=== PATIENT | female | born 1955 | race Caucasian/White ===

== ENCOUNTER 2022-01-10 23:24 | Emergency (ER) | payer SELFPAY ==
[~2022-01-10] VITALS: Ht 168 cm; Wt 100.0 kg
[2022-01-10 23:26] VITALS: BP 170/96
--- NOTE | 2022-01-10 23:41 | ED EENT ---
History of Present Illness General Chief Complaint: Dental Problems/Pain Stated Complaint: DENTAL PAIN Source: patient Exam Limitations: no limitations History of Present Illness Date Seen by Provider: Jan 10, 2022 Time Seen by Provider: 23:27 Initial Comments 66yoF with PMH of HTN, HLD, chronic pain coming in due to dental pain. Has had poor dentition and issues for years, but yesterday increasing pain so went to her dentist. X-ray showed infection so she was started on azithromycin due to multiple allergies to medications. This has not been helping and the swelling worsened today. Pain is severe, constant, throbbing, worse with touching it, better with ice. She took ibuprofen earlier which helped somewhat. She is otherwise denying any other acute complaints Allergies and Home Medications Allergies Coded Allergies: Penicillins (Verified Allergy, Severe, 01/10/22) cefaclor (Verified Allergy, Unknown, 01/10/22) cephalexin (Verified Allergy, Unknown, rash, 01/10/22) Patient Home Medication List Home Medication List Reviewed: Yes Review of Systems Review of Systems Constitutional: No fever Eyes: Denies Blurred Vision Ears: No Symptoms Reported Nose: no symptoms reported Mouth: pain, swelling Throat: no symptoms reported Respiratory: no symptoms reported Cardiovascular: no symptoms reported Gastrointestinal: no symptoms reported Musculoskeletal: no symptoms reported Skin: no symptoms reported Neurological: No Symptoms Reported Hematologic/Lymphatic: No Symptoms Reported Immunological/Allergic: no symptoms reported All Other Systems Reviewed Negative Unless Noted: Yes Past Vhdhtii-Rpolbi-Zmogte Hx Patient Social History Substance use?: No Physical Exam Height, Weight, BMI Height: '" Weight: lbs. oz. kg; BMI Method: General Appearance: WD/WN, mild distress Eyes: bilateral eye normal inspection Ears: bilateral ear auricle normal Nose: normal inspection Mouth/Throat: pharynx normal, dental tenderness, mandibular swelling (right lower jaw swollen, no palpable abscess); No pharynx swelling, No pharynx tenderness, No tonsillar exudate, No trismus, No uvula swelling Neck: non-tender, full range of motion, supple, normal inspection Cardiovascular: regular rate, rhythm, no edema, no murmur Respiratory: chest non-tender, lungs clear, normal breath sounds, no respir atory distress, no accessory muscle use Gastrointestinal: normal bowel sounds, non tender, soft; No distended, No guarding, No rebound Neurologic/Psychiatric: no motor/sensory deficits, alert, normal mood/affect Skin: normal color, warm/dry Progress/Results/Core Measures Results/Orders My Orders Orders - DAVID GRIGSBY MD Clindamycin Capsule (Cleocin Capsule) (01/10/22 23:45) Hydrocodone/Apap 5/325 Tablet (Lortab 5 (01/10/22 23:45) Diphenhydramine Tablet (Benadryl Tablet) (01/10/22 23:45) Progress Progress Note : Progress Note 66-year-old female with above history coming in due to dental pain with some swelling. ABCs were intact and vitals were stable on presentation. Physical exam with some swelling in her lower jaw, but no palpable abscess on my exam. No trismus or red flags. She is swallowing and tolerating secretions without difficulty. No respiratory compromise. She has multiple allergies, but she says she does have clindamycin at home, it just makes her itch sometimes. We will trial it here with some Benadryl. I do not think the azithromycin that her dentist put her on is covering the infection given it is worsening. I will refer her back to the dentist for the teeth to be removed. She was given hydrocodone here for pain. She was then discharged home in stable condition with strict return precautions Departure Impression Primary Impression: Dental infection Disposition: HOME, SELF-CARE Condition: Stable Departure-Patient Inst. Decision time for Depature: 23:55 Referrals: LAKISHA BAR APRN (PCP/Family) Primary Care Physician Patient Instructions: Dental Pain ED Add. Discharge Instructions: Please call your primary doctor and your dentist tomorrow. These teeth need to be removed and the infection needs to be drained which only your dentist can do. There are a few hydrocodone that we sent home with you for emergencies, otherwise take ibuprofen and or tylenol Scripts Clindamycin HCl (Clindamycin HCl) 300 Mg Capsule 300 MG PO QID for 7 Days, #28 CAP Prov: DAVID GRIGSBY MD 01/10/22 Work/School Note: Work Release Form Date Seen in the Emergency Department: Jan 10, 2022 Return to Work: Jan 13, 2022 Restrictions: No Restrictions DAVID GRIGSBY MD Jan 10, 2022 23:41
[2022-01-10] MEDS ORDERED: CLINDAMYCIN 150 MG (CLEOCIN) CAP PO ONE (23:45)
[2022-01-10] MEDS ORDERED: HYDROcodone/APAP 5 MG/325 MG (LORTAB) TAB PO ONE (23:45)
[2022-01-10] MEDS ORDERED: diphenhydrAMINE 25 MG TAB (BENADRYL) PO ONE (23:45)
[2022-01-10] MEDS ORDERED: CLIN-144 PO (23:46)
== END 2022-01-10 23:57 | disposition home or self-care (01) ==
LOC: EDUNIT# 23:24 → ER FS 23:27
DX: K04.7 Periapical abscess without sinus (principal)
CPT/HCPCS: 99283

== ENCOUNTER 2023-01-15 23:40 | Emergency (ER) | payer MEDICARE ==
[~2023-01-15 23:40] MED LIST: CLIN-144 PO
[2023-01-15 23:55] VITALS: BP 176/83
[2023-01-15] MEDS ORDERED: NS IV 1000 ML 1,000 ML IV STA (23:57)
[2023-01-15] MEDS ORDERED: LORazepam INJ 2 MG/ML (ATIVAN) VIAL IVP STA (23:57)
--- NOTE | 2023-01-16 00:03 | ED Chest Pain ---
General Chief Complaint: Chest Pain Stated Complaint: CHEST PAIN|SOB Source: patient, family Exam Limitations: no limitations History of Present Illness Date Seen by Provider: Jan 15, 2023 Time Seen by Provider: 23:42 Initial Comments 67-year-old female with past medical history most notable for COPD, hypertension, hyperlipidemia, thrombocytopenia coming in with family due to chest pain. Started many hours ago earlier on in the day, center of her chest, constant, mild to moderate. She states it feels similar to panic attacks that she has had in the past. She called her daughter, was hyperventilating, and felt her heart rate was elevated in that moment. Denies any history of heart attack, no prior DVT or PE, no lower extremity swelling or pain, no hemoptysis, no recent surgery, does not take any hormones. Has not smoked in over 5 years. Allergies and Home Medications Allergies Coded Allergies: Penicillins (Verified Allergy, Severe, 01/10/22) cefaclor (Verified Allergy, Unknown, 01/10/22) cephalexin (Verified Allergy, Unknown, rash, 01/10/22) Patient Home Medication List Home Medication List Reviewed: Yes Clindamycin HCl (Clindamycin HCl) 300 Mg Capsule, 300 MG PO QID Prescribed by: DAVID GRIGSBY on 01/10/22 9443 Review of Systems Review of Systems Constitutional: No fever EENTM: No Symptoms Reported Respiratory: No Symptoms Reported Cardiovascular: See HPI Gastrointestinal: No Symptoms Reported Genitourinary: No Symptoms Reported Musculoskeletal: no symptoms reported Skin: no symptoms reported Psychiatric/Neurological: Anxiety Endocrine: No Symptoms Reported Hematologic/Lymphatic: No Symptoms Reported Past Jtfberq-Tpmggp-Aliizk Hx Patient Social History Tobacco Use?: No Smoking Status: Former Smoker Physical Exam Vital Signs Vital Signs - First Documented 01/15/23 23:55 Temp 36.5 Pulse 97 Resp 20 B/P (MAP) 176/83 (114) Capillary Refill : Height, Weight, BMI Height: '" Weight: lbs. oz. kg; 35.00 BMI Method: General Appearance: WD/WN, Anxious HEENT: PERRL/EOMI, Normal ENT Inspection, Pharynx Normal Neck: Full Range of Motion, Non Tender, Supple Respiratory: Chest Non Tender, Lungs Clear, Normal Breath Sounds, No Accessory Muscle Use, No Respiratory Distress Cardiovascular: No Edema, Normal Peripheral Pulses, Tachycardia Gastrointestinal: Non Tender, Soft; No Distended, No Guarding Extremity: Normal Capillary Refill, Normal Range of Motion, Non Tender, No Calf Tenderness, No Pedal Edema, Other (Petechial-like rash on her bilateral upper and lower extremities) Neurologic/Psychiatric: Alert, Oriented x3, No Motor/Sensory Deficits, Normal Mood/Affect Skin: Normal Color, Warm/Dry Progress/Results/Core Measures Results/Orders Lab Results Laboratory Tests Test 01/15/23 23:46 Range/Units White Blood Count 3.9 L 4.3-11.0 10^3/uL Red Blood Count 5.24 H 3.80-5.11 10^6/uL Hemoglobin 13.7 11.5-16.0 g/dL Hematocrit 42 35-52 % Mean Corpuscular Volume 81 80-99 fL Mean Corpuscular Hemoglobin 26 25-34 pg Mean Corpuscular Hemoglobin Concent 32 32-36 g/dL Red Cell Distribution Width 14.1 10.0-14.5 % Platelet Count 126 L 130-400 10^3/uL Mean Platelet Volume 10.6 9.0-12.2 fL Immature Granulocyte % (Auto) 1 % Neutrophils (%) (Auto) 87 H 42-75 % Lymphocytes (%) (Auto) 10 L 12-44 % Monocytes (%) (Auto) 3 0-12 % Eosinophils (%) (Auto) 0 0-10 % Basophils (%) (Auto) 0 0-10 % Neutrophils # (Auto) 3.3 1.8-7.8 10^3/uL Lymphocytes # (Auto) 0.4 L 1.0-4.0 10^3/uL Monocytes # (Auto) 0.1 0.0-1.0 10^3/uL Eosinophils # (Auto) 0.0 0.0-0.3 10^3/uL Basophils # (Auto) 0.0 0.0-0.1 10^3/uL Immature Granulocyte # (Auto) 0.0 0.0-0.1 10^3/uL Neutrophils % (Manual) 87 % Lymphocytes % (Manual) 6 % Monocytes % (Manual) 2 % Band Neutrophils 2 % Reactive Lymphocytes 3 % Platelet Estimate DECREASED Percent Immature Platelet Fraction 3.4 0.0-7.6 % Blood Morphology Comment NORMAL Sodium Level 141 135-145 MMOL/L Potassium Level 4.0 3.6-5.0 MMOL/L Chloride Level 104 98-107 MMOL/L Carbon Dioxide Level 27 21-32 MMOL/L Anion Gap 10 5-14 MMOL/L Blood Urea Nitrogen 16 7-18 MG/DL Creatinine 0.53 L 0.60-1.30 MG/DL Estimat Glomerular Filtration Rate 103 BUN/Creatinine Ratio 30 Glucose Level 282 H 70-105 MG/DL Calcium Level 11.0 H 8.5-10.1 MG/DL Corrected Calcium 10.6 H 8.5-10.1 MG/DL Magnesium Level 2.0 1.6-2.4 MG/DL Total Bilirubin 0.2 0.1-1.0 MG/DL Aspartate Amino Transf (AST/SGOT) 19 5-34 U/L Alanine Aminotransferase (ALT/SGPT) 28 0-55 U/L Alkaline Phosphatase 157 H 40-136 U/L Troponin I < 0.30 <0.30 NG/ML Pro-B-Type Natriuretic Peptide 63.2 <125.0 PG/ML Total Protein 7.2 6.4-8.2 GM/DL Albumin 4.5 3.2-4.5 GM/DL Lipase 166 H 8-78 U/L My Orders Orders - DAVID GRIGSBY MD Ekg Tracing (01/15/23 23:42) Cbc With Automated Diff (01/15/23 23:57) Magnesium (01/15/23 23:57) Chest 1 View Ap/Pa Only (01/15/23 23:57) Comprehensive Metabolic Panel (01/15/23 23:57) Protime With Inr (01/15/23 23:57) Partial Thromboplastin Time (01/15/23 23:57) O2 (01/15/23 23:57) Monitor-Rhythm Ecg Trace Only (01/15/23 23:57) Ed Iv/Invasive Line Start (01/15/23 23:57) Lipase (01/15/23 23:57) Troponin I Fs (01/15/23 23:57) Probnp Fs (01/15/23 23:57) Lorazepam Injection (Ativan Injection) (01/15/23 23:57) Ns Iv 1000 Ml (Sodium Chloride 0.9%) (01/15/23 23:57) Manual Differential (01/15/23 23:46) Vital Signs/I&O 01/15/23 23:55 Temp 36.5 Pulse 97 Resp 20 B/P (MAP) 176/83 (114) Progress Progress Note : Progress Note 67-year-old female with above history coming in due to chest pain. ABCs were intact and vitals were stable on presentation although she is mildly tachycardic while anxious. An IV was placed and she was given a bolus of IV fluids as well as Ativan. Heart rate improved after this. She did not receive aspirin given she has been told she cannot take this due to her low platelets. EKG ordered and interpreted by me showing no STEMI. Basic labs significant for negative troponin, normal BNP, low white blood cell count and low platelet count which the patient states that has been chronic for years. Chest x-ray ordered and interpreted by me showing no pneumothorax, no obvious pneumonia, normal cardiac silhouette. She does have an elevated glucose which I will alert her to to have her PCP follow-up. Given she has had chest pain for many hours with a negative troponin, this is unlikely to be ACS related. Significantly improved after the Ativan as well. No clinical signs of a DVT, would be lower risk for a PE otherwise. In regards to her petechiae, she states they have been there for over a decade. 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 Patient is overall well-appearing and I believe stable for discharge with outpatient follow-up. She was sent home with strict return precautions Initial ECG Impression Date: Jan 15, 2023 Initial ECG Impression Time: 23:46 Initial ECG Rate: 107 Initial ECG Rhythm: S.Tach Comment Narrow QRS, normal axis, ST depression in the inferior leads but no STEMI, no prior EKG to compare to Diagnostic Imaging Diagonstic Imaging: Xray (chest) Departure Impression Primary Impression: Chest pain Qualified Codes: R07.82 - Intercostal pain Disposition: 01 HOME, SELF-CARE Condition: Stable Departure-Patient Inst. Decision time for Depature: 01:05 Referrals: LAKISHA BAR APRN (PCP/Family) Primary Care Physician Patient Instructions: Chest Pain (DC) Add. Discharge Instructions: We are not seeing any evidence of any life-threatening causes of chest pain tonight. Please follow-up with Dr. Keller the [facility]. His number is in this paperwork. Work/School Note: Family Work Note Patient Received Medical Care In the Emergency Department On: Jan 16, 2023 Patient Will Be Able to Return to Work/School On: Jan 17, 2023 DAVID GRIGSBY MD Jan 16, 2023 00:03
[2023-01-16 00:34] LABS: BASOPHILS % (AUTO) 0 % (0-10); EOSINOPHILS % (AUTO) 0 % (0-10); HEMATOCRIT 42 % (35-52); HEMOGLOBIN 13.7 g/dL (11.5-16.0); LYMPHOCYTES # (AUTO) 0.4 10^3/uL (1.0-4.0); LYMPHOCYTES % (AUTO) 10 % (12-44); MEAN CORPUSCULAR HEMOGLOBIN 26 pg (25-34); MEAN CORPUSCULAR HGB CONC 32 g/dL (32-36); MEAN CORPUSCULAR VOLUME 81 fL (80-99); MEAN PLATELET VOLUME 10.6 fL (9.0-12.2); MONOCYTES # (AUTO) 0.1 10^3/uL (0.0-1.0); MONOCYTES % (AUTO) 3 % (0-12); NEUTROPHILS # (AUTO) 3.3 10^3/uL (1.8-7.8); NEUTROPHILS % (AUTO) 87 % (42-75); PLATELET COUNT 126 10^3/uL (130-400); WHITE BLOOD COUNT 3.9 10^3/uL (4.3-11.0)
[2023-01-16 00:43] LABS: BAND NEUTROPHILS 2 %; LYMPHOCYTES % (MANUAL) 6 %; MONOCYTES % (MANUAL) 2 %; NEUTROPHILS % (MANUAL) 87 %
[2023-01-16 00:46] LABS: PLATELET ESTIMATE DECREASED; RBC MORPH NORMAL; REACTIVE LYMPHOCYTES 3 %
[2023-01-16 00:51] LABS: BUN/CREATININE RATIO 30; CARBON DIOXIDE 27 MMOL/L (21-32); CHLORIDE 104 MMOL/L (98-107); CREATININE SERUM 0.53 MG/DL (0.60-1.30); GFR ESTIMATED 103; SODIUM 141 MMOL/L (135-145)
[2023-01-16 00:52] LABS: ALANINE AMINOTRANSFERASE 28 U/L (0-55); ALBUMIN 4.5 GM/DL (3.2-4.5); ALKALINE PHOSPHATASE 157 U/L (40-136); BILIRUBIN,TOTAL 0.2 MG/DL (0.1-1.0); GLUCOSE 282 MG/DL (70-105); LIPASE 166 U/L (8-78); TOTAL PROTEIN 7.2 GM/DL (6.4-8.2)
[2023-01-16 00:57] LABS: PROTHROMBIN TIME PATIENT 12.1 SEC (12.2-14.7)
[2023-01-16 00:58] LABS: INR 0.9 (0.8-1.4)
--- NOTE | 2023-01-16 08:17 | Diagnostic Imaging Report ---
EXAMINATION: Chest 1 view HISTORY: chest pain COMPARISON: None available. FINDINGS: Heart size and pulmonary vasculature are normal. The lungs are clear without consolidation, pleural effusion, or pneumothorax. The osseous structures are intact. IMPRESSION: 1. No acute radiographic abnormality in the chest. Dictated by: Dictated on workstation # [id number]
== END 2023-01-16 01:20 | disposition home or self-care (01) ==
LOC: EDUNIT# 23:40 → ER FS 23:42
DX: R07.9 Chest pain, unspecified (principal); R00.0 Tachycardia, unspecified; D69.6 Thrombocytopenia, unspecified; D72.819 Decreased white blood cell count, unspecified; R73.9 Hyperglycemia, unspecified; Z87.891 Personal history of nicotine dependence
CPT/HCPCS: 36415; 71045; 80053; 83690; 83735; 83880; 84484; 85007; 85027; 85610; 85730; 93005; 93041